=== PATIENT | female | born 1980 | race Caucasian/White ===

== ENCOUNTER 2017-07-24 22:37 | Emergency (ER) | payer OTHER ==
[~2017-07-24] VITALS: Ht 129.5 cm; Wt 64.7 kg
[~2017-07-24 22:37] MED LIST: VICODIN 5-3001 EACH PO; VICODIN,LORT1 TABLET PO; no routine home meds
[2017-07-25 00:31] VITALS: BP 135/82
== END 2017-07-25 00:32 | disposition home or self-care (01) ==
LOC: EME 22:37
DX: S01.81XA Laceration without foreign body of other part of head, initial encounter (principal); W01.198A Fall on same level from slipping, tripping and stumbling with subsequent striking against other object, initial encounter
CPT/HCPCS: 99281; 99284